=== PATIENT | female | born 1990 | race Hispanic/Latino ===

== ENCOUNTER 2023-10-14 18:00 | Inpatient (IN) | payer MEDICAID, OTHER ==
[2023-10-14 20:10] VITALS: BMI 32.9
[2023-10-14] MEDS ORDERED: Lidocaine 1% (PF) 30 ML VIAL SC PRN (21:26)
[2023-10-14] MEDS ORDERED: Acetaminophen 500 MG TAB PO PRN (21:26)
[2023-10-14] MEDS ORDERED: Misoprostol 200 MCG TAB PR PRN (21:26)
[2023-10-14] MEDS ORDERED: Calcium Gluc 4.6 MEQ/10 ML (100 MG/ML) SLOW IVP PRN (21:26)
[2023-10-14] MEDS ORDERED: Tranexamic Acid 1,000 MG/10 ML VIAL IVP PRN (21:26)
[2023-10-14] MEDS ORDERED: Ondansetron PF 4 MG/2 ML Vial IVP PRN (21:26)
[2023-10-14] MEDS ORDERED: Carboprost 250 MCG/ML AMP IM PRN (21:26)
[2023-10-14] MEDS ORDERED: Ibuprofen 800 MG TAB PO PRN (21:26)
[2023-10-14] MEDS ORDERED: Promethazine HCl 25 MG/ML VIAL IM PRN (21:26)
[2023-10-14] MEDS ORDERED: Lorazepam 2 MG/ML VIAL SLOW IVP PRN (21:26)
[2023-10-14] MEDS ORDERED: Diphenoxylate HCl/Atropine Tablet PO PRN (21:26)
[2023-10-14] MEDS ORDERED: hydrALAZINE 20 MG/ML VIAL SLOW IVP PRN ×2 (21:26)
[2023-10-14] MEDS ORDERED: Labetalol HCl 100 MG/20 ML VIAL SLOW IVP PRN ×3 (21:26)
[2023-10-14] MEDS ORDERED: Oxytocin 30 units/NS 500 ML 500 ML IV SCH (21:30)
[2023-10-14 21:39] LABS: Hematocrit 31.6 % (34.9-44.5); Hemoglobin 10.8 g/dL (12.0-15.5); Mean Corpuscular HGB CONC 34.2 g/dL (32.0-36.0); Mean Corpuscular Hemoglobin 30.3 pg (27.0-33.0); Mean Corpuscular Volume 88.5 fl (81.6-98.3); Mean Platelet Volume 11.4 fl (7.4-10.4); Platelet Count 266 10x3/uL (150-450); RBC Distribution Width 14.5 % (11.5-14.5); Red Blood Cell (RBC) Count 3.57 10x6/uL (3.90-5.03); White Blood Cell (WBC) Count 8.2 10x3/uL (3.5-10.5)
[2023-10-14] MEDS: Lactated Ringer's 1,000 ML IV SCH (22:20)
[2023-10-14] MEDS: Misoprostol 100 MCG TAB VAG SCH (22:30)
[2023-10-14] MEDS: Penicillin G Potassium 5 MILL.UNITS in Sodium Chloride 0.9% 100 ML IVPB SCH (22:34)
[2023-10-14 22:59] LABS: Syphilis Antibody Nonreactive (Nonreactive); Syphilis Antibody Index 0.08 S/CO (<1.00 Non-Reactive)
[2023-10-14 23:00] LABS: HBSAg Index 0.27 S/CO (0-0.99); Hep B Surf Ag - L&D Non-Reactive S/CO (NonReactive)
[2023-10-15] MEDS: Penicillin G 2.5 MILL.units 2.5 MILL.UNITS in Premix 1 BAG IVPB SCH (02:28)
[2023-10-15] MEDS: Oxytocin 30 units/NS 500 ML 500 ML IV SCH (08:05)
[2023-10-15] MEDS ORDERED: Bisacodyl 10 MG SUPP PR PRN (15:44)
[2023-10-15] MEDS ORDERED: diphenhydrAMINE 25 MG CAP PO PRN (15:44)
[2023-10-15] MEDS ORDERED: Methylergonovine 0.2 MG/ML VIAL IM PRN (15:44)
[2023-10-15] MEDS ORDERED: Milk Of Magnesia 30 ML UDCUP PO PRN (15:44)
[2023-10-15] MEDS: Oxytocin 30 units/NS 500 ML 500 ML ONE (18:02)
[2023-10-15] MEDS: Acetaminophen 500 MG TAB PO SCH (18:21)
[2023-10-15] MEDS: Ibuprofen 800 MG TAB PO SCH (21:58)
[2023-10-15] MEDS: Docusate 100 MG CAP PO SCH (21:58)
[2023-10-16] MEDS: Boostrix 0.5 ML (Tdap) VIAL (>/=7 yrs of age) IM ONE (08:19)
[2023-10-16] MEDS: Ferrous Sulfate 325 MG TAB PO SCH (08:47)
[2023-10-16 16:35] VITALS: BP 116/73; TEMP 98.1
== END 2023-10-16 20:10 | disposition home or self-care (01) | DRG 807 ==
LOC: CSHLD 19:50 → CSHPP 10-15 17:23
PROVIDERS: ADMIT Obstetrics & Gynecology; ATTEND Obstetrics & Gynecology
PROC: 10E0XZZ Delivery of Products of Conception, External Approach (ICD-10-PCS; principal; 2023-10-15)
PROC: 3E0P7VZ Introduction of Hormone into Female Reproductive, Via Natural or Artificial Opening (ICD-10-PCS; 2023-10-15)
PROC: 10907ZC Drainage of Amniotic Fluid, Therapeutic from Products of Conception, Via Natural or Artificial Opening (ICD-10-PCS; 2023-10-15)
DX: O13.4 Gestational [pregnancy-induced] hypertension without significant proteinuria, complicating childbirth (principal); Z37.0 Single live birth; Z79.899 Other long term (current) drug therapy; Z3A.38 38 weeks gestation of pregnancy; D64.9 Anemia, unspecified; Z14.1 Cystic fibrosis carrier; O99.824 Streptococcus B carrier state complicating childbirth; O99.02 Anemia complicating childbirth
CPT/HCPCS: 85027; 86780; 86850; 86900; 86901; 87340; J2540; J2590; J3490; J7120